=== PATIENT | female | born 1980 | race Caucasian/White ===

== ENCOUNTER 2019-07-04 08:01 | Outpatient (CLI) | payer OTHER ==
[2019-07-04] MEDS ORDERED: Gadobenate Dimeglumine 529 MG/1 ML (20ML VIAL) ONE (09:00)
[2019-07-04 10:18] LABS: #Basophils 0.1 thou/uL (0.0-0.2); #Eosinphils 0.1 thou/uL (0.0-0.7); #Lymphocytes 1.9 thou/uL (1.20-3.40); #Monocytes 0.4 thou/uL (0.11-0.59); #Neutrophils 3.3 thou/uL (1.40-6.50); %Basophils 1.9 % (0.0-1.0); %Eosinophils 1.6 % (0.0-10.0); %Lymphocytes 32.8 % (21.0-51.0); %Monocytes 6.5 % (0.0-10.0); %Neutrophils 57.3 % (42.0-75.0); Hemoglobin 14.9 g/dL (12.0-16.0); Mean Corpuscular HGB CONC 33.4 g/dL (32.0-36.0); Mean Corpuscular Hemoglobin 28.7 pg (27.0-31.0); Mean Corpuscular Volume 85.9 fL (78.0-98.0); Mean Platelet Volume 9.3 fL (7.4-10.4); Platelet Count 296 thou/uL (130-400); RBC Distribution Width 12.4 % (11.5-14.5); Red Blood Cell (RBC) Count 5.19 mill/uL (4.20-5.40); White Blood Cell (WBC) Count 5.8 thou/uL (4.8-10.8)
--- NOTE | 2019-07-04 13:50 | MRI ---
MRI OF LEFT WRIST WITH AND WITHOUT IV CONTRAST: DATE: 07/04/2019. PROVIDED CLINICAL HISTORY: Wrist mass. FINDINGS: There is a circumscribed fluid signal intensity mass at the dorsum of the carpus at midline at radial to midline. This measures at least 2.4 x 1.3 cm in greatest transverse and AP dimensions respective ly and at least 2.6 cm in greatest craniocaudal dimension. This appears primarily superficial to the extrinsic dorsal wrist ligaments cranially, though the proximal aspects of this are not separable fr om the proximal pole of the scaphoid. There is insinuation of this mass between the 2nd and 3rd dors al compartment extensor tendons. There is no concerning contrast enhancement associated with this ma ss. There is a circumscribed focus of rounded signal alteration present involving the proximal pole of th e scaphoid with associated contrast enhancement compatible with intraosseous ganglion. Regional nick ow signal appears otherwise normal. The dorsal extensor and volar flexor tendons demonstrate an intact MR appearance. No regional joint effusion is evident. Alignment appears anatomic. Joint space appear preserved. IMPRESSION: 1. 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 2. Intraosseous ganglion within the proximal pole of the scaphoid. POS: [facility]
[2019-07-05 15:17] LABS: ANA Symphony (Qualitative) Negative (Negative); ANA Symphony (Quantitative) 0.3 Ratio (< 0.7 Negative); CCP IgG Antibody 0.9 EliAU/mL (<7 Negative); EliA RAS New Method **** NEW METHOD ****; Rheumatoid Factor IgA Antibody 6.7 IU/mL (<14 Negative); dsDNA IgG Antibody 1.7 IU/mL (<10 Negative)
[2019-07-08 10:09] LABS: Lyme IgG/IgM AB <0.91 ISR (0.00-0.90)
== END 2019-07-04 08:02 | disposition home or self-care (01) ==
LOC: SCSMRI 08:01
PROVIDERS: ATTEND Orthopaedic Surgery Hand Surgery
DX: M85.40 Solitary bone cyst, unspecified site (principal); M67.432 Ganglion, left wrist
CPT/HCPCS: 36415; 83520; 85025; 85652; 86038; 86200; 86225; 86618; A9577